=== PATIENT | female | born 1985 | race Caucasian/White ===

== ENCOUNTER 2024-07-26 05:56 | Observation (INO) ==
--- NOTE | 2024-07-12 13:14 | Anesthesiology Consultation ---
Date of Service July 12, 2024 Assessment & Plan (1) Encounter for pre-operative examination: - Check BSG DOS (Elevated glucose at 160 on 07/05/24 labs. No reported hx of diabetes/prediabetes. Will recheck BSG DOS) - Check test DOS - Infectious disease screening: Per assessment on 07/12/24- No known recent infectious disease contacts or current infectious disease symptoms. Chart Review Chart Review: Acceptable Risk for Surgery and Patient NOT seen in Pre Admission Testing History Surgery Operation Date: 07/26/24 10:50 Proposed Procedures p Panniculectomy with Suction-Assisted Lipectomy of the Upper Abdomen - Bita Garcia MD Height/Weight Height: 5 ft 7 in Weight: 104.326 kg Allergies Allergy/AdvReac Type Severity Reaction Status Date / Time adhesive tape Allergy Severe Rash Verified 07/12/24 12:22 latex Allergy Severe Rash Verified 07/12/24 12:22 Penicillins Allergy Severe Hives Verified 07/12/24 12:23 nickel Allergy Intermediate skin Verified 07/12/24 12:23 irritation Medications Home Medications Medication Instructions Recorded Confirmed Last Taken cyanocobalamin (vitamin B-12) 1,000 mcg PO DAILY 12/22/23 07/12/24 Unknown 1,000 mcg capsule ferrous sulfate 325 mg (65 mg 325 mg PO DAILY 12/22/23 07/12/24 Unknown iron) tablet (Feosol) sertraline 100 mg tablet (Zoloft) 200 mg PO HS 12/22/23 07/12/24 Unknown hydrocodone 5 mg-acetaminophen 325 1 tab PO Q4H PRN pain #18 tabs 07/05/24 07/12/24 Unknown mg tablet multivitamin 1 tab PO DAILY 07/05/24 07/12/24 Unknown norethindrone-e.estradiol 1 tab PO DAILY 07/05/24 07/12/24 Unknown triphasic 0.5 mg/0.75 mg/1 mg-35 mcg tablet (Dasetta (28)) phentermine 37.5 mg tablet 37.5 mg PO QAM 07/12/24 07/12/24 Unknown Past Medical History Medical History Abdominal pannus Chronic anemia Depression with anxiety History of COVID-2020: severe flu-like symptoms, muscle weakness, fatigue, loss of appetite > resolved Hx of hyperlipidemia resolved Hx of renal calculi Remote history - no surgical intervention needed, passed on her own Hx of sleep apnea "Resolved" with weight loss per patient Hypoglycemia Occasional episodes since gastric bypass Lymphedema Per records Past Family History Family History Grandmother (Paternal) FHx: breast cancer Grandmother (Maternal) Graves disease Grandfather (Maternal) Leukemia Mother TIA (transient ischemic attack) Other Heart disease No family history of adverse response to anesthesia Past Surgical History Surgical History History of esophagogastroduodenoscopy (EGD) History of gastric bypass 06/22/2016 History of surgery thighplasty with lipo 10/30/21 Social History Smoking Status: Never smoker Do You Dip or Chew Tobacco: No Hx Alcohol Use: Yes alcohol intake frequency: holidays/special occasions only Hx Substance Use: No substance use type: does not use Lab Results Anesthesia Preop Results Results Anesthesia Widget: WBC 5.29 K/ul (4.8-10.8) 07/05/24 Hgb 10.4 g/dl (12.0-16.0) L 07/05/24 Hct 33.4 % (37.0-47.0) L 07/05/24 Plt 264 K/uL (130-400) 07/05/24 Na 137 mmol/L (136-145) 07/05/24 K 3.7 mmol/L (3.5-5.1) 07/05/24 Cl 105 mmol/L (98-107) 07/05/24 CO2 26 mmol/L (21-32) 07/05/24 BUN 10 mg/dl (6-23) 07/05/24 Creat 0.68 mg/dl (0.6-1.2) 07/05/24 Glucose Level 160 mg/dl (70-99(Fasting)) H 07/05/24 PT 10.3 Seconds (9.0-12.0) 07/05/24 INR 0.9 (0.9-1.1) 07/05/24 Testing Laboratory Results *Anemia noted on preop labs. Reviewed by Dr. Caicedo- nothing further needed perioperatively from his perspective. At anesthesiologist discretion DOS if recheck level needed from their perspective*
[2024-07-26] MEDS ORDERED: TRANEXAMIC ACID 1,000 MG x 1 **TOPICAL Use Intraop TOP SCH (06:00)
[2024-07-26] MEDS ORDERED: ROCURONIUM BROMIDE 10 MG/ML 5 ML VIAL IV ONE ×3 (06:37→09:31)
[2024-07-26] MEDS ORDERED: PROPOFOL IV EMULSION 10 MG/ML 20 ML VIAL IV ONE (06:37)
[2024-07-26] MEDS ORDERED: fentaNYL citrate PF 100 MCG/2 ML VIAL ONE ×3 (06:37→10:24)
[2024-07-26] MEDS ORDERED: MIDAZOLAM HCL 1 MG/ML 2ML VIAL ONE (06:37)
[2024-07-26] MEDS: LR 15ML/HR IV SCH (06:38)
--- NOTE | 2024-07-26 06:49 | History & Physical Bridge Note ---
Date of Service July 26, 2024 History & Physical Bridge Note I have examined the patient, reviewed the History & Physical and in the interval since the performance of the History & Physical I have noted the following changes of clinical significance: no changes noted
[2024-07-26] MEDS ORDERED: ePHEDrine sulfate 50 MG/ML AMP IV PRN (07:09)
[2024-07-26] MEDS ORDERED: HYDROmorphone INJ 2 MG/ML SYR/VIAL IV PRN (07:09)
[2024-07-26] MEDS ORDERED: ATROPINE SULFATE 0.1 MG/ML 10ML SYR IV PRN (07:09)
[2024-07-26] MEDS ORDERED: DROPERIDOL 5 MG/2 ML VIAL IV PRN (07:09)
[2024-07-26] MEDS ORDERED: ONDANSETRON INJ 2 MG/ML 2 ML VIAL IV PRN ×2 (07:09→14:07)
[2024-07-26] MEDS: TRANEXAMIC ACID 1,000 MG **IV Intra-op IV SCH (07:28)
[2024-07-26] MEDS: [UNRECOGNIZED DRUG - REMARK] IV SCH (07:45)
[2024-07-26] MEDS ORDERED: KETAMINE HCL 10MG/ML SYR ONE (07:45)
[2024-07-26] MEDS ORDERED: HYDROmorphone INJ 1 MG/ML SYRINGE ONE ×2 (07:56→10:33)
[2024-07-26] MEDS ORDERED: ONDANSETRON INJ 2 MG/ML 2 ML VIAL ONE (08:02)
[2024-07-26] MEDS ORDERED: SUGAMMADEX SODIUM 200 MG/2 ML VIAL IV ONE (08:04)
[2024-07-26] MEDS ORDERED: ePHEDrine sulfate 50 MG/5 ML SYR ONE (08:18)
[2024-07-26] MEDS: EPINEPHrine INJ 1 MG/ML AMP ONE ×2 (09:02→11:09)
[2024-07-26] MEDS: LIDOCAINE 1% LOCAL 20 ML VIAL ONE ×2 (09:05→11:09)
[2024-07-26] MEDS: LIDOCAINE 1%/EPINEPHRINE 1:100,000 50 ML VIAL ONE (09:06)
[2024-07-26] MEDS: BUPIVACAINE 0.25% PF 30 ML VIAL ONE (10:29)
[2024-07-26] MEDS: TRANEXAMIC ACID 1,000 MG **IV Pre-op IV SCH (10:46)
[2024-07-26] MEDS: TISSEEL FIBRIN SEALANT 10ML TOP ONE (11:08)
--- NOTE | 2024-07-26 12:01 | Post Operative Brief Note ---
PG Immediate Post Op with CF Date of Surgery July 26, 2024 Pre & Post Diagnosis Operation Date: 07/26/24 07:30 Pre-Op Diagnosis: Abdominal Pannus, Major Weight Loss Post-Op Diagnosis: Abdominal Pannus, Major Weight Loss I identified the patient and participated in the time-out.: Yes Procedure Operation Date: 07/26/24 07:30 Actual Procedures p Panniculectomy with Suction-Assisted Lipectomy of the Upper Abdomen (Cosmetic Surgery Times: [id number], [id number])(Not Applicable) - Bita Garcia MD Surgeon Bita Garcia MD Television Mechanic Yoon Akins PA-C Estimated Blood Loss 25 Findings Consistent with Post-Op Diagnosis Specimens Specimen Description: A: Abdominal Pannus Drains Shanks Catheter (inserted after induction of anesthesia by Rebeca Oneill RN without difficulty) and Paresh-Paredes Drain
[2024-07-26] MEDS: fentaNYL citrate PF 100 MCG/2 ML VIAL IV PRN (12:45)
--- NOTE | 2024-07-26 12:50 | Operative Report ---
PG Post Operative Report Pre & Post Diagnosis Operation Date: 07/26/24 07:30 Pre-Op Diagnosis: Abdominal Pannus, Major Weight Loss Post-Op Diagnosis: Abdominal Pannus, Major Weight Loss I identified the patient and participated in the time-out.: Yes Procedure Operation Date: 07/26/24 07:30 Actual Procedures p Panniculectomy with Suction-Assisted Lipectomy of the Upper Abdomen (Not Applicable) - Bita Garcia MD Surgeon Bita Garcia MD Dishcloth Folder Yoon Akins PA-C Estimated Blood Loss 25 Findings Consistent with Post-Op Diagnosis Specimens abdominal pannus Drains JPx2 Indications s/p massive weight loss, overhanging abdominal pannus with intertrigo Description of Procedure Risks, benefits, and alternatives of the procedure were explained to the patient who agreed and signed consent. She was identified and marked in the preoperative holding area. She was brought to the operating room where she was positioned supine and placed under general anesthesia without incident. Shanks catheter was placed. Surgical site was prepped and draped sterilely. A time-out procedure was performed. I reassessed my markings which included a lower horizontal abdominal incision with the midportion 7 cm above the vulvar commissure. Incision was marked bilaterally to the ASIS. I began the procedure with cosmetic liposuction. Times are recorded in nursing documentation. Five access incisions were marked, all within planned resected tissue. 967 ml of tumescent fluid was instilled. Pretunneling using a 4 mm cannula was performed from all access incisions. Area of concentration for suction assisted lipectomy was the epigastric area and lateral abdomen. Following pretunneling, suction was applied. Manual liposuction was performed from all five access incisions, keeping the skin under tension and identifying the tip of the cannula both visually and with manual throughout the entire procedure. Endpoints of liposuction were improvement in contour and uniform pinch. I did not liposuction to the point of bloody aspirate as the goal is improvement in contour given patient's overall body habitus. A total of approximately 650 cc of Lipo aspirate were obtained. Following this, I began the panniculectomy portion of the procedure. 1% lidocaine with epinephrine was used anesthetize each of these incisions and a small stab incision was made using 15 blade scalpel. I began by injecting 1% lidocaine with epinephrine along the planned incision. The lower abdominal incision was made using a 15-blade scalpel to incise epidermis and superficial dermis followed by electrocautery to incise deep dermis, s ubcutaneous fat, Ann's fascia down to the abdominal wall. Care was taken to bevel superiorly in order to avoid encountering the inguinal region. Electrocautery was used to elevate the anterior abdominal skin flap ligating the perforating vessels with 3-0 Vicryl ties and electrocautery. Dissection was carried up to the level of the umbilicus in the midline. At this point, a 15-blade scalpel was used to circumscribe the umbilicus. A vertical midline incision was then made from the incision to the umbilicus and divided in the midline using electrocautery. The umbilicus was then dissected out using electrocautery down to abdominal wall. The umbilical stalk appeared viable throughout the procedure. In order to facilitate inset of the umbilicus, dissection was continued for about an additional 8 cm superior to the umbilicus. At this point, the bed was flexed and the mid portion of the superior skin flap was inset above the mons pubis using 2-0 Vicryl suture. Skin flaps were marked for excision. A 15-blade scalpel was used to make these incisions and the incision was deepened through dermis, subcutaneous fat, Ann's fat using electrocautery. Subscarpal fat was resected directly. A 15 [place] drains were placed in the wound bed and brought out through a separate stab incision in the mons pubis. Prior to closure, a total of 10 mL of 0.25% Marcaine plain were injected into the fascia as well as along the incisions. Wound was partially closed to assess contour and additional fine- tuning liposuction was performed using a 2 mm cannula to improve contour. Once I was satisfied, Tisseel was sprayed into the wound bed to further aid in hemostasis given the large size of the wound bed. The drains were sutured into place using 3-0 nylon. The umbilicus was brought out through an inverted triangular incision in the abdominal wall. This was performed using a 15-blade scalpel. Wound closure was then begun lateral to medial using 2-0 Vicryl Ann's fascia sutures, 2-0 Vicryl deep dermal sutures, 2-0 PDO running superficial Quill suture, 3-0 Monocryl running subcuticular suture. Umbilicus was brought out through the inverted triangle incision and was sutured into place using 4-0 Vicryl Rapide half buried horizontal mattress sutures. The umbilicus was dressed using Xeroform and the incision was dressed using a Prevena wound vac followed by dry dressings and an abdominal binder. The procedure was tolerated well. The patient was awakened and transferred to recovery in satisfactory condition. Yoon Akins was present and scrubbed throughout the entire procedure and was instrumental in providing retraction of the pannus and assisting in simultaneous wound closure. I attest to the content of the Intraoperative Record and any orders documented therein. Any exceptions are noted below.
--- NOTE | 2024-07-26 12:58 | Anesthesiology Progress Note ---
Date of Service July 26, 2024 Anesthesia Post Procedure Vital Signs Vital Signs: Temp Pulse Pulse Resp BP Pulse Ox O2 Del Method 07/26/24 12:30 107 H 17 138/79 95 Oxymask 07/26/24 12:20 113 H 12 134/87 96 Oxymask 07/26/24 12:10 36.5 C 118 H 19 153/84 H 93 Oxymask 07/26/24 06:26 37 C 71 20 135/83 100 Room Air O2 Flow Rate 07/26/24 12:30 4 07/26/24 12:20 4 07/26/24 12:10 4 07/26/24 06:26 Transfer of Care Handoff Completed per policy Notes Mental Status: alert / awake / arousable and participated in evaluation Patient Amnestic to Procedure: Yes Nausea / Vomiting: adequately controlled Pain: adequately controlled Airway Patency, RR, SpO2: stable & adequate BP & HR: stable & adequate Hydration State: stable & adequate Anesthetic Complications: no major complications apparent and Pt Satisfied with anesthetic care
[2024-07-26] MEDS ORDERED: MoRPHine SULFATE 2 MG/ML CARP IV PRN ×2 (14:07)
[2024-07-26] MEDS ORDERED: ACETAMINOPHEN 325 MG TAB PO PRN (14:07)
[2024-07-26] MEDS ORDERED: diphenhydrAMINE Capsule 25 MG CAP PO PRN (14:07)
[2024-07-26] MEDS ORDERED: LORazepam 0.5 MG TAB PO PRN (14:07)
[2024-07-26] MEDS ORDERED: oxyCODONE/ACETAMINOPHEN 5mg/325mg TAB PO PRN (14:07)
[2024-07-26] MEDS ORDERED: PROMETHAZINE 12.5 MG/50.5 ML BAG IV PRN (14:07)
[2024-07-26] MEDS ORDERED: diphenhydrAMINE 50 MG/ML VIAL IV PRN (14:07)
[2024-07-26] MEDS: CLINDAMYCIN/D5W 600 MG/50 ML BAG IV SCH (14:58)
[2024-07-26] MEDS: oxyCODONE/ACETAMINOPHEN 5mg/325mg TAB PO PRN (15:05)
[2024-07-26] MEDS: SERTRALINE HCL 100 MG TABLET PO SCH (20:15)
[2024-07-27 07:42] VITALS: BP 113/71; PULSE 81; RESP 16; TEMP 98.2; O2SAT 96
--- NOTE | 2024-07-27 08:20 | Surgery Progress Note ---
Date of Service July 27, 2024 Assessment & Plan (1) S/P panniculectomy: Plan: D/C home today, office follow-up tomorrow. She is aware now to keep vac charged and to suction. She will void prior to discharge. Admission and Anticipated Discharge Date Admission Date: July 26, 2024 Subjective Gaetano is resting in bed. Shanks removed but she has not voided yet. Pain is controlled. She is tolerating a regular diet. Physical Exam Physical Exam: wound vac not to suction- vas battery has . plugged in and now functioning. drains with scant serosang output Results & Data Vital Signs (Past 12 Hours) Vital Signs Temp Pulse Resp BP Pulse Ox O2 Del Method 07/27/24 07:40 36.8 C 81 16 113/71 96 Room Air 07/27/24 03:00 37.2 C 72 12 109/71 99 Room Air 07/26/24 23:40 37.1 C 76 12 105/68 96 Room Air PG Care Time/CCT Total # of Minutes Spent Total Time Spent with Patient: Total time spent is greater than 50% in coordination of care (as documented) at patient's floor/unit and/or counseling patient: Coding Level of Care Code 87511 Post Operative Follow-Up Diagnoses S/P panniculectomy Z98.890
[2024-07-27] MEDS: FERROUS SULFATE 325 MG TAB PO SCH (09:21)
[2024-07-27] MEDS: MULTIVITAMIN TAB PO SCH (09:21)
--- NOTE | 2024-07-27 15:14 | Discharge Summary ---
Date of Service July 27, 2024 Admission HPI Per Admitting Provider History of weight loss and excess skin of the abdomen, skin irritation and breakdown. Admission Exam Per Admitting Provider abdominal pannus Principal Diagnosis abdominal pannus Discharge Exam wound vac not to suction- vas battery has . plugged in and now functioning. drains with scant serosang output Discharge Data Allergies Allergy/AdvReac Type Severity Reaction Status Date / Time adhesive tape Allergy Severe Rash Verified 07/26/24 06:22 latex Allergy Severe Rash Verified 07/26/24 06:22 Penicillins Allergy Severe Hives Verified 07/26/24 06:22 nickel Allergy Intermediate skin Verified 07/26/24 06:22 irritation Procedures Performed Operation Date: 07/26/24 07:30 Actual Procedures p Panniculectomy with Suction-Assisted Lipectomy of the Upper Abdomen (Cosmetic Surgery Times: [id number], [id number])(Not Applicable) - Bita Garcia MD Hospital Course (1) S/P panniculectomy: Patient presented to [facility] with history of abdominal pannus. She was taken to the OR and underwent panniculectomy. There were no intraoperative complications. She was taken to recovery and transferred to med/surg for observation. On POD#1, she was feeling well. She was tolerating a regular diet and ambulating. She was able to void after catheter was removed. On exam, her vitals were stable. Her incisions were CDI, vac placed to suction. Her drains had appropriate output. She was discharged home with instructions to follow-up in the office in one day. Total Time Total Time Spent Total Time Spent (In Minutes): 15 Discharge Plan Discharge Items Patient Disposition: Home - Self-Care Reason For Visit: Abdominal Pannus, Encounter for Cosmetic Surgery Discharge Diagnosis: s/p panniculectomy Activity: As commented below Non-emergency contact: Surgeon Call non-emergency contact if: you have any medication questions, your pain is not controlled and you have a fever Follow-up/Referrals: Yoon Akins PA-C [Physician Leave Coordinator] - Padmini Graham DO [Primary Care Provider] - Diet: Regular Addtl Attending Provider Instructions: ACTIVITY RECOMMENDATIONS: __Normal activities _x_No bending, lifting or straining. Do not stand or lay flat until it is easily comfortable __No driving __Driving allowed when you are off pain medications _x Walking permitted __You should have help at home for ___ days __You may return to previous diet. DRESSINGS: __No dressings required _x_Keep dressings dry/in place until first office visit. keep wound vac charged __Remove dressings ___ and leave dressings off __Apply ice ___ days __Remove dressings and reapply garment __Apply antibiotic ointment (Bacitracin, Neosporin, etc) to wounds 3-4 times/day for 10 days BATHING: _x_Keep dressings dry _x_Sponge bathing permitted away from surgical dressings/wound vac __Showering permitted _x_No swimming, hot tubs or soaking in a tub MEDICATIONS: Resume previous medications unless instructed otherwise by your surgeon. _x_Do not use aspirin, Motrin, Advil or Ibuprofen as these may promote bleeding. Please use Tylenol. _x_Prescription(s) provided: pain medication was provided at your last office visit OTHER INSTRUCTIONS: _x_Record drain output 2-3 times per day SPECIAL CARE INSTRUCTIONS: * It is normal to have a mild fever after surgery. If your temperature is higher than 101.5 degrees F, please call the office at [phone]. * Constipation is a typical side effect of pain medication. An [id number] stool softener will help relieve this. * Leaking around surgical drains may occur and should not cause concern. Sometimes these drains become clogged. If this happens, remove the bulb and milk the clot out of the tube, then replace the bulb. * Drainage from wounds after liposuction is normal and should be expected. Garments will become soiled. You should protect furniture and bedding. This drainage should mostly subside within 2-3 days. Leave garments in place unless instructed to remove them. * If you have unusual drainage from a wound or are concerned you have an infection or have any questions or concerns, please call the office at [phone]. FOLLOW UP VISIT: If not already scheduled, please call the office, , when you return home after surgery to schedule an appointment to be seen in __1_ days. Pending Studies at Discharge: Yes Stand-Alone Forms: My [facility], Smoking Cessation Medications and DC Order Prescriptions: Continued sertraline [Zoloft] 100 mg tablet 200 mg PO HS ferrous sulfate [Feosol] 325 mg (65 mg iron) tablet 325 mg PO DAILY Hold Instructions: surgery cyanocobalamin (vitamin B-12) 1,000 mcg capsule 1,000 mcg PO DAILY Hold Instructions: surgery multivitamin Tablet 1 tab PO DAILY Hold Instructions: surgery hydrocodone-acetaminophen 5-325 mg tablet 1 tab PO Q4H PRN (Reason: pain) Qty: 18 0RF Rx Instructions: Dr. Garcia [id number] phentermine 37.5 mg Tablet 37.5 mg PO QAM Rx Instructions: must administer 30 minutes before or 1-2 hours after breakfast Discontinued Dasetta (28) 0.5/0.75/1 mg- 35 mcg tablet 1 tab PO DAILY Hold Instructions: surgery Discharge Orders: Discharge Order (Routine); Ordered 07/27/24 Ordered By: Yoon Akins Admission Data Admit Date/Time: 07/26/24 11:33 Attending Provider: Bita Garcia Admit Provider: Bita Garcia Primary Care Provider: Padmini Graham Other Interventions: Discharge Summary Assessment (RN) Last Done: 07/27/24 09:42 Coding Level of Care Code 31036 OBS Care - Discharge Diagnoses S/P panniculectomy Z98.890
== END 2024-07-27 11:47 | disposition home or self-care (01) ==
LOC: ASU 05:56 → PACUINP 05:56 → 3E 14:05